=== PATIENT | female | born 2000 | race American Indian/Alaskan Native ===

== ENCOUNTER 2021-12-02 16:32 | Emergency (ER) | payer OTHER, MEDICAID ==
[2021-12-02 16:50] VITALS: BP 134/80
[2021-12-02 17:50] VITALS: PULSE 84
== END 2021-12-02 17:47 | disposition home or self-care (01) ==
LOC: MERGE 16:32 → VM.ED 16:32
DX: R07.89 Other chest pain (principal); W50.0XXA Accidental hit or strike by another person, initial encounter
CPT/HCPCS: 99283; 99284